=== PATIENT | male | born 1985 | race African-American/Black ===

== ENCOUNTER 2020-03-28 06:14 | Emergency (ER) | payer SELFPAY ==
[~2020-03-28] VITALS: Ht 177.8 cm; Wt 59.1 kg
--- NOTE | 2020-03-28 08:38 | PHYS DOC ---
Past Medical History Past Medical History: Other Additional Past Medical Histor: PT IS POOR HISTORIAN Past Surgical History: No Surgical History Additional Past Surgical Histo: PT IS POOR HISTORIAN Smoking Status: Current Every Day Smoker Alcohol Use: Occasionally Social History Narrative: [facility] General Adult EDM: Chief Complaint: DRUG ABUSE HPI: HPI: Patient is a 34 year old who was just [facility] [address] [facility] this morning. He is homeless. He was found wandering around in the street in the cold. He has good winter coat on. Someone then called EMS to take him to the hospital. Patient has a history of methamphetamine abuse. He denies suicidal ideation, denies was ideation. EMS said he did not want to talk much about what is going on with him. When this physician evaluate him in the room, patient was awake alert, he was cooperative. He said he was hungry, cold, wants something to eat drink and a blanket. Patient denies suicidal ideation, denies homicidal ideation. Review of Systems: Review of Systems: Constitutional: Denies fever or chills. [] Eyes: Denies change in visual acuity. [] HENT: Denies nasal congestion or sore throat. [] Respiratory: Denies cough or shortness of breath. [] Cardiovascular: Denies chest pain or edema. [] GI: Denies abdominal pain, nausea, vomiting, bloody stools or diarrhea. [] : Denies dysuria. [] Musculoskeletal: Denies back pain or joint pain. [] Integument: Denies rash. [] Neurologic: Denies headache, focal weakness or sensory changes. [] Endocrine: Denies polyuria or polydipsia. [] Lymphatic: Denies swollen glands. [] Psychiatric: Denies depression or anxiety. [] Heart Score: Risk Factors: Risk Factors: DM, Current or recent (<one month) smoker, HTN, HLP, family history of CAD, obesity. Risk Scores: Score 0 - 3: 2.5% MACE over next 6 weeks - Discharge Home Score 4 - 6: 20.3% MACE over next 6 weeks - Admit for Clinical Observation Score 7 - 10: 72.7% MACE over next 6 weeks - Early Invasive Strategies Allergies: Allergies: Allergies Coded Allergies Type Severity Reaction Last Updated Verified No Known Drug Allergies 03/28/20 No Physical Exam: PE: Constitutional: Well developed, well nourished, no acute distress, non-toxic appearance. [] HENT: Normocephalic, atraumatic, bilateral external ears normal, oropharynx moist, no oral exudates, nose normal. [] Eyes: PERRLA, EOMI, conjunctiva normal, no discharge. [] Neck: Normal range of motion, no tenderness, supple, no stridor. [] Cardiovascular:Heart rate regular rhythm, no murmur [] Lungs & Thorax: Bilateral breath sounds clear to auscultation [] Abdomen: Bowel sounds normal, soft, no tenderness, no masses, no pulsatile masses. [] Skin: Warm, dry, no erythema, no rash. [] Back: No tenderness, no CVA tenderness. [] Extremities: No tenderness, no cyanosis, no clubbing, ROM intact, no edema. [] Neurologic: Alert and oriented X 3, normal motor function, normal sensory function, no focal deficits noted. [] Psychologic: Affect normal, judgement normal, mood normal. HE DENIED SUICIDAL IDEATION, HE SAID HE WAS COLD, ASKED POLITELY FOR A BLANKET. Current Patient Data: Vital Signs: Vital Signs Date Time Temp Pulse Resp B/P (MAP) Pulse Ox O2 Delivery O2 Flow Rate FiO2 03/28/20 07:38 89 16 120/58 (78) 97 Room Air 03/28/20 06:19 97.8 97.8 EKG: EKG: [] Radiology/Procedures: Radiology/Procedures: [] Course & Med Decision Making: Course & Med Decision Making Pertinent Labs and Imaging studies reviewed. (See chart for details) Patient is a 34-year-old homeless person who was wandering outside in the cold, EMS brought him here for evaluation. Patient has no medical or mental problem at this time. Patient will be discharged home after he was observed in the ER for 4 hours. Twan Disclaimer: Twan Disclaimer: This electronic medical record was generated, in whole or in part, using a voice recognition dictation system. Departure Departure Impression: Primary Impression: Homeless single person Additional Impression: Weakness Disposition: 01 DC HOME SELF CARE/HOMELESS Referrals: NO PCP (PCP) Patient Instructions: Weakness Additional Instructions: [facility] [address] [place] [address] [facility] [address] [place] [address] [facility] [address] [facility] [place] [address] [facility] [address] [place] [address] [facility] [address] [place] [address] [facility] [address] [place] [address] [facility] [address] [place] [address] [facility] [address] [place] [address] [facility] [address] [place] [address] [facility] [address] [place] [address] WILBER KONG DO Mar 28, 2020 08:38
[2020-03-28 10:26] VITALS: BP 104/60
== END 2020-03-28 10:27 | disposition home or self-care (01) ==
LOC: ER 06:14
DX: R53.1 Weakness (principal); Z59.0 Homelessness; F17.200 Nicotine dependence, unspecified, uncomplicated; F15.10 Other stimulant abuse, uncomplicated
CPT/HCPCS: 99283